=== PATIENT | male | born 1945 | race Caucasian/White ===

== ENCOUNTER → 2017-12-18 | Outpatient (CLI) | payer OTHER ==
[~2017-12-18] MED LIST: DIAZ10; DRON2.5; DULO30; METH10; MORP15ER; MULVITA; PROM25 PO; VARE1
== END | disposition home or self-care (01) ==
LOC: LAB 14:21 → LAB SHORT 14:21
DX: M67.40 Ganglion, unspecified site (principal)
CPT/HCPCS: 87070; 87075; 87205

== ENCOUNTER 2020-11-26 06:26 | Inpatient (IN) | payer OTHER, MEDICARE ==
[~2020-11-26] VITALS: Ht 172.7 cm; Wt 73.7 kg
[2020-11-26 07:04] LABS: BASOPHILS ABSOLUTE AUTO 0.06 K/mm3 (0.00-0.23); BASOPHILS PERCENT AUTO 1 % (0-2); EOSINOPHILS PERCENT AUTO 1 % (0-6); Hematocrit 45.1 % (37.0-53.0); Hemoglobin 15.2 g/dL (13.5-17.5); IMMATURE GRAN ABSOLUTE AUTO 0.06 K/mm3 (0.00-0.10); IMMATURE GRAN PERCENT AUTO 1 % (0-1); LYMPHOCYTES ABSOLUTE AUTO 1.49 K/mm3 (0.84-5.20); LYMPHOCYTES PERCENT AUTO 12 % (21-46); MONOCYTES PERCENT AUTO 7 % (4-13); Mean Corpuscular HGB Conc 33.7 g/dL (31.5-36.5); Mean Corpuscular Volume 92 fL (80-100); Mean Platelet Volume 8.9 fL (9.1-12.4); NEUTROPHILS PERCENT AUTO 79 % (41-73); Platelet Count 286 K/mm3 (150-400); RDW Coefficient Variation 13.8 % (11.7-14.2); RDW Standard Deviation 47.2 fL (35.1-46.3); Red Blood Cell Count 4.91 M/mm3 (4.30-5.90); White Blood Cell Count 12.61 K/mm3 (4.00-11.30)
[2020-11-26 07:23] LABS: Alanine Aminotransfer (ALT/SGP 29 U/L (12-78); Albumin, Blood 3.6 g/dL (3.4-5.0); Albumin/Globulin Ratio 0.9 (0.8-1.8); Alk Phos 94 U/L (50-136); Anion Gap 6 mmol/L (6-16); Aspartate Aminotrans (AST/SGOT 21 U/L (12-37); Bilirubin, Total 0.6 mg/dL (0.1-1.0); Blood Urea Nitrogen 15 mg/dL (8-24); Bun/Creatinine Ratio 21.1 (12.0-20.0); CO2, Blood 24 mmol/L (21-32); Calcium, Blood 8.7 mg/dL (8.5-10.1); Chloride, Blood 105 mmol/L (98-108); Creatinine, Blood 0.71 mg/dL (0.60-1.20); Globulin, Blood 3.9 g/dL (2.2-4.0); Glomerular Filtration Rate >60 (60-); Glucose, Blood 116 mg/dL (70-99); Sodium, Blood 135 mmol/L (136-145); Total Protein, Blood 7.5 g/dL (6.4-8.2); Uric Acid, Blood 4.1 mg/dL (3.5-7.2)
[2020-11-26 10:31] LABS: Body Fluid Crystals NEG (NEGATIVE)
[2020-11-26 10:35] LABS: BODY FLUID RBC 0.003 M/mm3 (0-0); RBC Count, Synovial Fluid 3000 /mm3 (0-0)
[2020-11-26 10:50] LABS: WBC Count, Synovial Fluid 75580 /mm3 (0-180)
[2020-11-26 10:51] LABS: Color, Synovial Fluid Pale Yellow (None-P Yel)
[2020-11-26 10:52] LABS: Appearance, Synovial Fluid Cloudy (Clear)
[2020-11-26 11:26] LABS: Lymphs, Synovial Fluid 3 % (0-15); Monocytes/Macrophages, Synovia 8 % (0-65); Neutrophils, Synovial Fluid 89 % (0-24)
[2020-11-26 16:26] LABS: SARS-Cov-2 (COVID-19) PCR, MMC NEGATIVE (NEGATIVE)
--- NOTE | 2020-11-26 16:39 | NUR ---
PT TO PROCEDURE BROUGHT BY BED TO DAY SURGERY.
--- NOTE | 2020-11-26 17:10 | NUR ---
11/26/20 1710 BARAKMARIA A PADILLA PT RECEIVED ANTIBIOTICS PRIOR TO PROCEDURE PER DR ORDERS.
--- NOTE | 2020-11-26 18:10 | NUR ---
SHIFT SUMMARY PT ARRIVE TO UNIT FROM ED DURING SHIFT. VS STABLE. PT SBA TO BATHROOM. PT REPORTS SEVERE PAIN IN R ARM. ARM SWOLLEN, ELEVEATED ON PILLOWS FOR RELIEF. PT MEDICATED PRIOR TO UNIT ARRIVAL. SURGEON TO SEE PT. EKG ORDERED FOR DAY SURGERY, EKG DONE. COVID SWAB ORDERED FOR DAY SURGERY, COLLECTED. IV ABX STARTED PER PHYSICIAN. PRE-PROCEDURAL PACKET IN PT'S CHART. FILLED OUT WITH PT AND SURGEON AT BEDSIDE. PT STILL IN PROCEDURE AT THIS TIME.
[2020-11-26 18:50] LABS: Body Fluid Crystals NEG (NEGATIVE)
--- NOTE | 2020-11-26 18:57 | NUR ---
REPORT RECEIVED REPORT RECIEVED FROM RONNELL NYE.
[2020-11-27 04:05] LABS: BASOPHILS ABSOLUTE AUTO 0.01 K/mm3 (0.00-0.23); BASOPHILS PERCENT AUTO 0 % (0-2); EOSINOPHILS PERCENT AUTO 0 % (0-6); Hematocrit 41.7 % (37.0-53.0); Hemoglobin 13.9 g/dL (13.5-17.5); IMMATURE GRAN ABSOLUTE AUTO 0.02 K/mm3 (0.00-0.10); IMMATURE GRAN PERCENT AUTO 0 % (0-1); LYMPHOCYTES ABSOLUTE AUTO 0.87 K/mm3 (0.84-5.20); LYMPHOCYTES PERCENT AUTO 10 % (21-46); MONOCYTES PERCENT AUTO 9 % (4-13); Mean Corpuscular HGB 30.9 pg (26.0-34.0); Mean Corpuscular HGB Conc 33.3 g/dL (31.5-36.5); Mean Corpuscular Volume 93 fL (80-100); Mean Platelet Volume 8.9 fL (9.1-12.4); NEUTROPHILS ABSOLUTE AUTO 6.89 K/mm3 (1.96-9.15); NEUTROPHILS PERCENT AUTO 80 % (41-73); Platelet Count 245 K/mm3 (150-400); RDW Coefficient Variation 13.6 % (11.7-14.2); RDW Standard Deviation 46.3 fL (35.1-46.3); White Blood Cell Count 8.59 K/mm3 (4.00-11.30)
[2020-11-27 04:26] LABS: Anion Gap 5 mmol/L (6-16); Blood Urea Nitrogen 15 mg/dL (8-24); CO2, Blood 24 mmol/L (21-32); Calcium, Blood 7.8 mg/dL (8.5-10.1); Chloride, Blood 105 mmol/L (98-108); Creatinine, Blood 0.79 mg/dL (0.60-1.20); Glomerular Filtration Rate >60 (60-); Glucose, Blood 140 mg/dL (70-99); Magnesium, Blood 2.1 mg/dL (1.6-2.4); Potassium, Blood 4.3 mmol/L (3.5-5.5); Sodium, Blood 134 mmol/L (136-145)
--- NOTE | 2020-11-27 05:21 | NUR ---
PT A/OX4. VSS ON RA. PAIN MANAGED W/ DILAUDID Q2HR. 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 TOLERATED WELL BY PT. CONTINOUS FLUIDS INFUSING. TOLERATED PO INTAKE WELL. DENIES N/V. AWAKE MOST OF NIGHT. USING URINAL. UP TO TOILET W/ MIN ASSIST. USING CALL LIGHT TO MAKE NEEDS KNOWN.
--- NOTE | 2020-11-27 07:30 | NUR ---
pt reports improved pain 2/10 min drainage in the hemovac drain serosang pt wanting a break from his pas
--- NOTE | 2020-11-27 08:49 | NUR ---
dr stratton by to see pt hemovac drain removed and new dressing applied plan for picc line placement for residential abx therapy will call to see if rn is available to place today if not saturday
--- NOTE | 2020-11-27 12:08 | NUR ---
pt eating lunch assisted him opening up the items
--- NOTE | 2020-11-27 14:33 | NUR ---
pt stated he hit his elbow on the table req pain meds 0.5 mg ivp dilaudid given
[2020-11-28 03:21] LABS: Vancomycin, Trough 9.6 ug/mL (5.0-10.0)
--- NOTE | 2020-11-28 03:49 | NUR ---
PT A/OX4. VSS ON RA. PAIN MANAGED WELL W/ IV DILAUDID. USING CALL LIGHT TO MAKE NEEDS KNOWN. SLEEPING B/W CARE.
[2020-11-28] MEDS ORDERED: AMOX-CLAV 875-1 EAC5 PO (15:21)
[2020-11-28] MEDS ORDERED: VISBIOME 112.51 EACH PO (15:22)
--- NOTE | 2020-11-28 15:52 | NUR ---
DISCHARGE SUMMARY PATIENT ALERT AND ORIENTED THROUGHOUT SHIFT. TOLERATING REGULAR DIET AND FLUIDS. VOIDING WELL. INDEPENDENT IN THE ROOM. RIGHT ELBOW INCISION COVERED WITH ABD AND MARI WRAP. PAIN CONTROLLED WITH PO PAIN MEDS. DISCHARGED HOME ON ORAL ANTIBIOTICS. WILL FOLLOW UP WITH DR COSBY WITHIN 10 DAYS. DISCHARGE ORDER OBTAINED. DISCHARGE EDUCATION GIVEN ON WOUND CARE, NEW RX'S, FOLLOW UP APPOINTMENTS, AND ACTIVITY LEVEL. PT LEFT UNIT VIA WHEELCHAIR FOR HOME AT 1545.
[2020-11-30 13:11] LABS: LYME IGG/IGM AB <0.91 ISR (0.00-0.90)
== END 2020-11-28 15:44 | disposition home or self-care (01) | DRG 508 ==
LOC: ER 06:26 → SURS 06:27 → ER 12:45 → SURS 13:06
PROVIDERS: Emergency Medicine; Internal Medicine Infectious Disease; Orthopaedic Surgery; ADMIT Internal Medicine
PROC: 0R9L0ZZ Drainage of Right Elbow Joint, Open Approach (ICD-10-PCS; principal; 2020-11-26 15:45)
DX: M11.221 Other chondrocalcinosis, right elbow (principal); J44.9 Chronic obstructive pulmonary disease, unspecified; E78.5 Hyperlipidemia, unspecified; G89.29 Other chronic pain; M54.9 Dorsalgia, unspecified; Z20.822 Contact with and (suspected) exposure to COVID-19; F32.9 Major depressive disorder, single episode, unspecified; K21.9 Gastro-esophageal reflux disease without esophagitis; Z96.651 Presence of right artificial knee joint; M19.011 Primary osteoarthritis, right shoulder; M79.7 Fibromyalgia; Z87.891 Personal history of nicotine dependence; Z98.890 Other specified postprocedural states; Z88.2 Allergy status to sulfonamides; Z88.5 Allergy status to narcotic agent; Z88.6 Allergy status to analgesic agent; Z88.8 Allergy status to other drugs, medicaments and biological substances; Z85.828 Personal history of other malignant neoplasm of skin; Z89.422 Acquired absence of other left toe(s)
CPT/HCPCS: 20605; 36415; 73080; 76882; 80048; 80053; 80202; 83735; 84550; 85025; 85651; 86140; 86618; 87070; 87071; 87075; 87205; 87801; 89051; 89060; 93005; 93010; 96365-59; 96375-59; 96376-59; 97165; 99285-25; A9270; G0378; J0696; J1100; J1170; J2250; J2370; J2405; J2704; J3010; J3370; J7050; J7120; U0004

== ENCOUNTER → 2024-08-31 | Outpatient (CLI) | payer MEDICARE, OTHER ==
[~2024-08-31] MED LIST changes: +AMOX-CLAV 875-1 EAC5 PO; +VISBIOME 112.51 EACH PO
== END | disposition home or self-care (01) ==
LOC: LAB 12:37 → LAB SHORT 12:37
DX: M25.462 Effusion, left knee (principal)
CPT/HCPCS: 87070; 87205

== ENCOUNTER → 2025-06-06 | Outpatient (CLI) | payer MEDICARE, OTHER ==
[2025-06-06 11:07] LABS: BASOPHILS ABSOLUTE AUTO 0.03 K/mm3 (0.00-0.23); BASOPHILS PERCENT AUTO 0 % (0-2); EOSINOPHILS ABSOLUTE AUTO 0.10 K/mm3 (0.00-0.68); EOSINOPHILS PERCENT AUTO 1 % (0-6); Hematocrit 44.1 % (37.0-53.0); Hemoglobin 14.7 g/dL (13.5-17.5); IMMATURE GRAN ABSOLUTE AUTO 0.04 K/mm3 (0.00-0.10); IMMATURE GRAN PERCENT AUTO 0 % (0-1); LYMPHOCYTES ABSOLUTE AUTO 1.64 K/mm3 (0.84-5.20); LYMPHOCYTES PERCENT AUTO 17 % (21-46); MONOCYTES ABSOLUTE AUTO 1.11 K/mm3 (0.16-1.47); MONOCYTES PERCENT AUTO 12 % (4-13); Mean Corpuscular HGB Conc 33.3 g/dL (31.5-36.5); Mean Corpuscular Volume 93 fL (80-100); NEUTROPHILS ABSOLUTE AUTO 6.77 K/mm3 (1.96-9.15); NEUTROPHILS PERCENT AUTO 70 % (41-73); NRBC ABSOLUTE 0.00 K/mm3 (0.00-0.02); NRBC Auto 0.0 /100 WBC (0.0-0.2); Platelet Count 275 K/mm3 (150-400); RDW Coefficient Variation 13.9 % (11.7-14.2); RDW Standard Deviation 47.8 fL (35.1-46.3)
[2025-06-06 11:12] LABS: Anion Gap 15.0 mmol/L (3-11); Blood Urea Nitrogen 15.0 mg/dL (8-24); CO2, Blood 24.0 mmol/L (21-32); Calcium, Blood 8.8 mg/dL (8.5-10.1); Chloride, Blood 103.0 mmol/L (98-108); Creatinine, Blood 0.79 mg/dL (0.60-1.20); Glucose, Blood 102.0 mg/dL (70-99); Potassium, Blood 3.9 mmol/L (3.5-5.5); Sodium, Blood 138.0 mmol/L (136-145)
== END | disposition home or self-care (01) ==
LOC: LAB SHORT 11:02 → LAB 11:02
PROVIDERS: Physician Assistant
DX: M25.421 Effusion, right elbow (principal)
CPT/HCPCS: 80048; 85025